=== PATIENT | male | born 1955 | race Caucasian/White ===

== ENCOUNTER 2017-10-24 09:47 | Emergency (ER) | payer BC ==
[2017-10-24 10:34] VITALS: BP 121/71
--- NOTE | 2017-10-24 11:33 | ED ---
Skin Complaint - HPI Summary HPI Summary: 61 yr old male with rash left thorax, onset of symptoms a week ago. He woke up with the rash, and it was red, and there was a blister that he popped. The patient says he found a black small spider on his bed that morning and killed it. The patient has rash that has spread with red base and blisters that have formed the past week. He states he has had some itching and irritation. The rash is on left side thorax only. No fever or chills. - History of Current Complaint Chief Complaint: UCBiteInjury Time Seen by Provider: 10/24/17 11:15 Stated Complaint: SPIDER BITE Pain Intensity: 5 - Allergy/Home Medications Allergies/Adverse Reactions: Allergies Allergy/AdvReac Type Severity Reaction Status Date / Time No Known Allergies Allergy Verified 08/16/15 13:34 PMH/Surg Hx/FS Hx/Imm Hx Endocrine/Hematology History: Reports: Hx Diabetes Cardiovascular History: Reports: Hx Hypertension History: Denies: Hx Dialysis, Hx Renal Disease - Surgical History Surgery Procedure, Year, and Place: Cardiac Stent. [place] as young child Infectious Disease History: No Infectious Disease History: Denies: Traveled Outside the [place] in Last 30 Days - Family History Known Family History: Positive: Cardiac Disease, Hypertension, Diabetes - Social History Occupation: Employed Full-time Alcohol Use: Occasionally Substance Use Type: Reports: None Smoking Status (MU): Heavy Every Day Tobacco Smoker Type: Cigarettes Amount Used/How Often: 1 ppd Length of Time of Smoking/Using Tobacco: since age 18 yo Review of Systems Constitutional: Negative Positive: Other - on left thorax. All Other Systems Reviewed And Are Negative: Yes Physical Exam Triage Information Reviewed: Yes Vital Signs On Initial Exam: Initial Vitals Temp Pulse Resp BP Pulse Ox 97.5 F 72 20 121/71 97 10/24/17 10:26 10/24/17 10:26 10/24/17 10:26 10/24/17 10:26 10/24/17 10:26 Vital Signs Reviewed: Yes Appearance: Positive: Well-Appearing, No Pain Distress Skin: Positive: Other - rash left thorax, located in the approximate T-8/9 dermatome located from the left paraspinal area and wraps around to the front without any midline crossing. It has patches of erythematous base and now scabs in the areas where the patient had had blisters that he popped. Head/Face: Positive: Normal Head/Face Inspection Eyes: Positive: EOMI ENT: Positive: Normal ENT inspection Neck: Positive: Nontender Respiratory/Lung Sounds: Positive: Clear to Auscultation, Breath Sounds Present Cardiovascular: Positive: RRR. Negative: Murmur Abdomen Description: Positive: Nontender Musculoskeletal: Positive: Strength/ROM Intact Neurological: Positive: Sensory/Motor Intact, Alert, Oriented to Person Place, Time, CN Intact II-III Psychiatric: Positive: Normal - [place] Coma Scale Best Eye Response: 4 - Spontaneous Best Motor Response: 6 - Obeys Commands Best Verbal Response: 5 - Oriented Coma Scale Total: 15 Diagnostics - Vital Signs Vital Signs Temp Pulse Resp BP Pulse Ox 10/24/17 10:26 97.5 F 72 20 121/71 97 - Laboratory Lab Statement: Any lab studies that have been ordered have been reviewed, and results considered in the medical decision making process. Course/Dx - Course Course Of Treatment: 61 yr old with shingles. DC home on Valtrex. FU with PMD. - Diagnoses Provider Diagnoses: Shingles Discharge - Sign-Out/Discharge Documenting (check all that apply): Discharge/Admit/Transfer - Discharge Plan Condition: Good Disposition: HOME Prescriptions: ValACYclovir (*) [Valtrex 1 GM(*)] 1 gm PO TID #21 tab Patient Education Materials: Shingles (ED) Referrals: Faith De La Vega MD [Primary Care Provider] - 5 Days - Billing Disposition and Condition Condition: GOOD Disposition: HOME
== END 2017-10-24 11:33 | disposition home or self-care (01) ==
LOC: UCCORT 09:47
DX: B02.9 Zoster without complications (principal); F17.210 Nicotine dependence, cigarettes, uncomplicated
CPT/HCPCS: 99212; G0463

== ENCOUNTER 2019-03-29 09:35 | Emergency (ER) | payer OTHER ==
[2019-03-29 10:18] VITALS: BP 156/103
[2019-03-29] MEDS ORDERED: Lidocaine 2% PF * 5 ML VIAL INJ ONE (10:30)
--- NOTE | 2019-03-29 10:55 | UC ---
Elbow Pain - HPI Summary HPI Summary: left elbow pain x 2 days + swelling back of his left elbow , no fever, no chills , no known injury pain is 4 out of 10 , worse with touch , better, with rest, - History of Current Complaint Chief Complaint: UCUpperExtremity Stated Complaint: LEFT ELBOW Time Seen by Provider: 03/29/19 10:23 Hx Obtained From: Patient Onset/Duration: Days - 2, Still Present Severity Initially: Moderate Severity Currently: Moderate Pain Intensity: 0 Location Of Pain: Is Discrete @ - left elbow Character: Aching Aggravating Factor(s): Movement Alleviating Factor(s): Rest Associated Signs And Symptoms: Positive: Swelling. Negative: Redness, Bruising , Fever, Weakness, Numbness/Tingling - Allergies/Home Medications Allergies/Adverse Reactions: Allergies Allergy/AdvReac Type Severity Reaction Status Date / Time No Known Allergies Allergy Verified 03/29/19 10:18 Home Medications: Home Medications Aspirin 81 mg CHEW TAB* [Aspirin Low Dose TAB*] 81 mg PO DAILY 03/29/19 [ History Confirmed 03/29/19] PMH/Surg Hx/FS Hx/Imm Hx Endocrine History: Diabetes Cardiovascular History: Hypertension - Surgical History Surgical History: Yes Surgery Procedure, Year, and Place: Cardiac Stent -age 45. [place] as young child - Family History Known Family History: Positive: Cardiac Disease, Hypertension, Diabetes - Social History Alcohol Use: Rare Substance Use Type: None Smoking Status (MU): Heavy Every Day Tobacco Smoker Type: Cigarettes Amount Used/How Often: 1 ppd Length of Time of Smoking/Using Tobacco: since age 18 yo - Immunization History Most Recent Influenza Vaccination: none Review of Systems All Other Systems Reviewed And Are Negative: Yes Constitutional: Positive: Negative Skin: Positive: Negative Eyes: Positive: Negative ENT: Positive: Negative Is Patient Immunocompromised?: No Physical Exam Triage Information Reviewed: Yes Appearance: Well-Appearing, No Pain Distress, Well-Nourished Vital Signs: Initial Vital Signs Temp 98.3 F 03/29/19 10:15 Pulse 94 03/29/19 10:15 Resp 20 03/29/19 10:15 BP 156/103 03/29/19 10:15 Pulse Ox 96 03/29/19 10:15 Vital Signs Reviewed: Yes Eye Exam: Normal Eyes: Positive: Conjunctiva Clear ENT: Positive: Normal ENT inspection, Hearing grossly normal, Pharynx normal Neck exam: Normal Neck: Positive: Supple Respiratory: Positive: Chest non-tender, Lungs clear, Normal breath sounds Cardiovascular: Positive: RRR, No Murmur, Pulses Normal Musculoskeletal: Positive: Other: - left elbow : + swelling olecronon bursa with tenderness , goot ROM on flexion and extension Procedures - Sedation Patient Received Moderate/Deep Sedation with Procedure: No - Incision and Drainage Left Elbow Site: left olecronon bursa Anesthesia: Local, Lidocaine - 3cc 2 % lidocaine plane Instrument(s): Needle - 18 g 20 cc fluid was drained , pt. tolerated the procedure well Elbow Pain Course/Dx - Differential Dx/Diagnosis Provider Diagnosis: Olecranon bursitis of left elbow Discharge ED - Sign-Out/Discharge Documenting (check all that apply): Patient Departure All imaging exams completed and their final reports reviewed: No Studies - Discharge Plan Condition: Stable Disposition: HOME Patient Education Materials: Elbow Bursitis (ED) Referrals: Faith De La Vega MD [Primary Care Provider] - 7 Days - Billing Disposition and Condition Condition: STABLE Disposition: Home
== END 2019-03-29 10:50 | disposition home or self-care (01) ==
LOC: UCCORT 09:35
DX: M70.22 Olecranon bursitis, left elbow (principal); E11.9 Type 2 diabetes mellitus without complications; I10 Essential (primary) hypertension; F17.210 Nicotine dependence, cigarettes, uncomplicated; Z79.82 Long term (current) use of aspirin
CPT/HCPCS: 20605; 99212; G0463